=== PATIENT | male | born 1945 | race Caucasian/White ===

== ENCOUNTER 2024-10-20 08:32 | Emergency (ER) | payer OTHER, MEDICARE, MEDICAID ==
[~2024-10-20] VITALS: Ht 175.3 cm; Wt 72.9 kg
[2024-10-20] MEDS: TETanus/Pertussis (Acell)/Diphther VAC/PF (Tdap-Adult) 0.5ml syringe IMVAC ONE (10:19)
[2024-10-20] MEDS: LIDOcaine 1% W/epiNEPHrine 1:100,000 20ml vial SQ ONE (10:20)
--- NOTE | 2024-10-20 11:47 | Physician Documentation ---
History of Present Illness ~ Chief Complaint: Wound Stated Complaint: HAND WOUNDS Time Seen by MD: 09:03 Source: patient Mode of Arrival: POV Exam Limitations: no limitations HPI 79-year-old male was taking out his trash can to the road and tripped and fell down and has bilateral abrasions and lacerations to his knuckles and fingers. He also has 2 small abrasions to bilateral knees. He has full range motion of all extremities. He has not taken any blood thinners, no head strike, no neck pain, no loss of consciousness. Last tetanus unknown Tetanus within 5 years?: Yes Medication Reconciliation Allergies: Coded Allergies: No Known Allergies (Unverified , 10/20/24) Review of Systems All Other Systems at this time: Reviewed and Negative Physical Exam Vital Signs: RN Vital Signs have been reviewed: Yes, Temperature: 97.8, Source: Temporal, Heart Rate: 77, Respiratory Rate: 18, BP: 136/87, Pulse Oximetry: 98, Weight: 72.900 Oxygen Flow Rate: 0 Pulse Oximetry Reflects: adequate oxygenation Physical Exam General: Alert, no apparent distress. HEENT: PERRL, EOMI, no injection, moist mucous membranes. Neck: Full range of motion. Respiratory: Lungs clear, no respiratory distress. Chest: No accessory muscle use. Cardiovascular: Regular rate and rhythm, no murmurs. Gastrointestinal: Soft, nontender, nondistended. Bowels sounds present. Extremities: Normal range of motion, no deformity, full range motion of bilateral fingers. Neurologic: Oriented x4. Psychiatric: Normal mood and affect. Skin: Normal color, warm and dry. + laceration 2 right index and middle fingers, skin tears to the 2nd 3rd 4th and 5th fingers on the left hand and 4th and 5th finger on the right hand. Bilateral abrasions to his knees. Signs of infection, actively bleeding controlled with pressure. Procedures Procedures Obtained verbal consent from patient for lacerations repair Laceration/Wound Repair Laceration/Wound Repair #1: Location: Right index finger at the PIP joint Length (cm): 2 Anesthesia: Lidocaine w/ Epi Volume Anesthetic (mls): 1 Prep: irrigated by nurse, irrigated by physician Debrided: minimal Undermining: none Margins: revised Foreign Body: not identified Repaired: skin Wound Repaired With: sutures Suture Size/Type: 4-0, ethilon Layer Closure?: No Dressing Applied: non-adherent Splint Applied?: Yes Type of Splint Applied: Digit splint Sling Applied?: No Tolerated Procedure Well?: yes, no complications Laceration/Wound Repair #2: Location: Right middle finger at the PIP joint Length (cm): 2 Anesthesia: Lidocaine w/ Epi Volume Anesthetic (mls): 1 Prep: irrigated by nurse, irrigated by physician Debrided: minimal Undermining: none Margins: revised Foreign Body: not identified Repaired: skin Suture Size/Type: 4-0, ethilon Layer Closure?: No Dressing Applied: non-adherent Splint Applied?: Yes Type of Splint Applied: Digit splint Sling Applied?: No Tolerated Procedure Well?: yes, no complications Progress Results/Orders Reviewed/noted all lab results: Yes Results/Orders Orders - RADHA THOMAS Laceration/I&D Tray Set Up (10/20/24 ) Ortho Orders (10/20/24 ) Completed Orders - RADHA THOMAS Lidocaine 1% W/Epi 1:100,000 (Xylocaine (10/20/24 09:35) * Additional Wound Care Orders (10/20/24 09:32) Tetanus/Pertuss/Diph Acell/Pf (Boostrix (10/20/24 09:35) Acetaminophen 325mg Tablet (Tylenol Tabl (10/20/24 09:40) * Additional Wound Care Orders (10/20/24 11:42) Bacitracin Ointment (Bacitracin Ointment (10/20/24 11:50) Medications Received in ER Medications (Trade) Dose Ordered Sig/Lexii Route PRN Reason Start Time Stop Time Status Last Admin Dose Admin (Xylocaine 1%-EPI 1:100,000) 3 ml ONCE ONCE SQ 10/20/24 09:35 10/20/24 09:36 DC 10/20/24 10:20 3 ML (Boostrix vaccine syringe) 0.5 ml ONCE ONCE IMVAC 10/20/24 09:35 10/20/24 09:36 DC 10/20/24 10:19 0.5 ML (Tylenol tablet) 650 mg ONCE ONCE PO 10/20/24 09:40 10/20/24 09:41 DC 10/20/24 10:19 650 MG (bacitracin ointment) 1 applic ONCE ONCE TP 10/20/24 11:50 10/20/24 11:51 DC 10/20/24 11:57 1 APPLIC Vital Signs 10/20/24 10/20/24 10/20/24 08:39 11:19 12:01 Temp 97.8 97.8 97.8 Pulse 80 77 72 Resp 16 18 18 B/P (MAP) 114/67 136/87 (103) 137/98 Pulse Ox 98 98 99 O2 Flow Rate 0 0 Medical Decision Making Additional info obtained from: old records Findings 79-year-old male who tripped and fell while taking out his trash cans and has abrasions to bilateral knees and abrasions, skin tears and lacerations to his bilateral fingers. I placed sutures to his right index finger and right middle finger due to the depth of the laceration. The skin tears I was able to pull the skin over on a couple of them to help provide some protection to the underlying tissue. Last tetanus was unknown so we updated it today. He did not hit his head and does not use any blood thinners. I provided him with Tylenol for his discomfort. I filled out the form for hidden to be seen in the [facility] Care [facility] as he lives alone and has wounds to 8 of his fingers. The to the have sutures in place he has a finger splint to provide immobility but he will need assistance with dressing changes on both his hands. This form was filled out and faxed to our outpatient wound care center. Bacitracin was applied to al l abrasions, skin tears and lacerations prior to nonadherent bandaging. He has no other complaints, he has full range motion of his hand so no imaging was indicated. I offered admission for wound care but he is requesting to be discharged home. Differential Dx:Considerations: Include: Cellulitis Additional Comment Fracture, osteomyelitis, sprain, intracranial hemorrhage, spine injury, neurovascular injury of fingers. Departure Disposition: HOME / SELF CARE / HOMELESS Impression: Primary Impression: Laceration Additional Impression: Abrasion Condition: Stable Discharge Instructions: Abrasion, Laceration Care, Adult, [id number] Additional Instructions: You have 3 sutures to your right index finger and 2 sutures to your right middle finger which will need to be removed in 10-14 days. Due to the extensive wounds to both of your hands, I have put in a request for you to be seen by our wound care clinic so they can help you with dressing your wounds. Please keep the finger splint on until you have the sutures removed. You can use Tylenol for pain relief, and make sure to keep hand elevated to reduce the amount of swelling. Return back here for any new or worsening symptoms. Follow up with her primary care provider within the next week. Apply the bacitracin to your fingers with sutures as well as to any other skin tears that you have. Referrals: NO PRIMARY CARE PROVIDER (PCP) Education Educated: Patient Educated regarding: diagnosis, treatment, prognosis, need for follow up Additional Comment Medical Screen Exam This patient recieved a medical screening examination. After reviewing the individual's medical complaints with presenting symptoms and performing an appropriate physical examination, it was determined that no immediate life- threatening emergency medical condition is present. This individual is also not a women having contractions. Signature Scribe Signature: . Attestation: Scribed for Radha Thomas by Radha Gamboa NP . 10/20/24 15:08 Parts of this note were created using [employer] voice recognition software program. While efforts were made to correct any mistakes made by this voice recognition software program, nonsensical phrases may remain in this note. In addition, there may be errors and syntax, grammar, content and spelling. RADHA THOMASP Oct 20, 2024 11:47
[2024-10-20] MEDS: bacitracin 15gm ointment TP ONE (11:57)
== END 2024-10-20 12:23 | disposition home or self-care (01) ==
LOC: ER 08:32 → MERGE 08:32 → ER 12:23
DX: S61.210A Laceration without foreign body of right index finger without damage to nail, initial encounter (principal); S61.212A Laceration without foreign body of right middle finger without damage to nail, initial encounter; S80.211A Abrasion, right knee, initial encounter; S80.212A Abrasion, left knee, initial encounter; W01.0XXA Fall on same level from slipping, tripping and stumbling without subsequent striking against object, initial encounter; Y93.89 Activity, other specified; Y92.89 Other specified places as the place of occurrence of the external cause; Y99.8 Other external cause status
CPT/HCPCS: 12002; 90471; 90715; 99283; J3490; A6449

== ENCOUNTER 2024-10-29 11:04 | Inpatient (IN) | payer OTHER, MEDICARE, MEDICAID ==
[~2024-10-29] VITALS: Ht 182.9 cm; Wt 80.9 kg
[2024-10-29 11:41] LABS: MEAN PLATELET VOLUME 8.9 FL (7.4-10.4); RED CELL DISTRIBUTION WIDTH 16.8 % (11.5-14.5)
[2024-10-29 11:55] LABS: CREATININE 3.48 MG/DL (0.60-1.10); TOTAL CARBON DIOXIDE 22.7 MMOL/L (24-32); eCRCL 18 ML/MIN; eGFR 17 ML/MIN
[2024-10-29 12:18] LABS: BANDS% (MANUAL) 14.0 % (0-10); LYMPHOCYTES % (MANUAL) 1.0 % (21-51); METAMYLEOCYTES% (MANUAL) 3.0 % (0-0); MONOCYTES % (MANUAL) 7.0 % (2-12); NEUTROPHILS % (MANUAL) 75.0 % (42-75); PLATELET ESTIMATE NORMAL
--- NOTE | 2024-10-29 13:49 | Physician Documentation ---
History of Present Illness ~ Chief Complaint: Wound Re-Check Stated Complaint: WOUND CARE Time Seen by MD: 13:00 HPI Patient is seen today with complaints of worsening swelling and pain and redness of the wounds of his hands especially in the right hand. Patient denies any fevers or chills and has no other concern or complaint at this time. He denies any shortness of breath or chest pain or abdominal pain or nausea, vomiting, diarrhea. Patient states he fell while going out to take out the trash about nine days ago on the 20 of October and had sutures placed at that time in his hospital. Tetanus within 5 years?: Yes Medication Reconciliation Allergies: Coded Allergies: No Known Allergies (Unverified , 10/21/24) Miscellaneous Medications Unable to Obtain Medications (Unable to Obtain Medications), (Reported) Review of Systems Constitutional: Denies: chills, fever, weakness Eyes: Denies: pain, blurred vision ENT: Denies: ear pain, nose pain, throat pain, mouth pain Respiratory: Denies: cough, shortness of breath Cardiovascular: Denies: chest pain, palpitations Gastrointestinal: Denies: abdominal pain, nausea, vomiting Genitourinary: Denies: burning, dysuria Male Genitalia: Denies: penile discharge, testicular pain Neurological: Denies: headache, dizziness Musculoskeletal: Denies: pain, swelling Integumentary: Denies: rash, lesions Allergic/Immunologic: Denies: hives, itching Hematologic/Lymphatic: Denies: no symptoms reported Psychiatric: Denies: depression, anxiety Physical Exam Vital Signs: Temperature: 98.0, Source: Oral, Heart Rate: 83, Respiratory Rate: 14, BP: 119/66, Pulse Oximetry: 95, Weight: 80.910 Oxygen Flow Rate: 0 Physical Exam General: Awake and Alert, no acute distress. HEENT: Conjunctiva pink, Sclera clear, Mucus Membranes moist. Neck: Supple without masses and tenderness. Resp: Unlabored. Lungs clear to auscultation bilaterally. Heart: Regular Rate and rhythm, normal S1 and S2 without murmur, rub or gallop. Musculoskeletal: Patient has multiple dehisced wounds of the dorsum of the digits of the IP joints of the right hand with significant cellulitis and swelling and redness of the right hand mainly of the dorsum. Patient also has significant abrasions of the dorsum of the IP joint area of the digits of the left hand. Patient has erythema and induration and appearing cellulitis of the left anterior knee. Patient is neurovascularly intact distally. Extremities: No cyanosis,clubbing or edema. Skin: Warm and Dry. Progress Results/Orders Results/Orders Orders - THEO KHAN PAC [place] [facility]ist (10/29/24 13:39) Fill Out Med Reconciliation (10/29/24 13:39) Cult (Aer) Routine C&S+Gram St (10/29/24 13:39) Cult Anaerobic (10/29/24 13:39) Hand,Limited (Ap/Lat) (10/29/24 14:07) Hand,Limited (Ap/Lat) (10/29/24 14:07) Completed Orders - THEO KHAN PAC Normal Saline 1000ml (0.9% Sodium Chlori (10/29/24 13:41) Hand,Limited (Ap/Lat) (10/29/24 14:07) Hand,Limited (Ap/Lat) (10/29/24 14:07) Vital Signs 10/29/24 10/29/24 10/29/24 11:10 13:02 13:04 Temp 98.4 98.0 Pulse 92 83 Resp 18 14 B/P (MAP) 100/53 119/66 (83) Pulse Ox 97 95 O2 Flow Rate 0 0 Laboratory Tests Test 10/29/24 11:30 10/29/24 12:10 10/29/24 13:51 White Blood Count 17.8 H Red Blood Count 3.58 L Hemoglobin 9.5 L Hematocrit 29.5 L Mean Corpuscular Volume 82.3 Mean Corpuscular Hemoglobin 26.6 L Mean Corpuscular Hemoglobin Concent 32.4 L Red Cell Distribution Width 16.8 H Platelet Count 154 Mean Platelet Volume 8.9 Neutrophils (%) (Auto) 93.0 H Lymphocytes (%) (Auto) 1.3 L Monocytes (%) (Auto) 4.9 Eosinophils (%) (Auto) 0.7 Basophils (%) (Auto) 0.1 Neutrophils # (Auto) 16.5 H Lymphocytes # (Auto) 0.2 L Monocytes # (Auto) 0.9 Eosinophils # (Auto) 0.1 Basophils # (Auto) 0.0 CBC Comment Differential Total Cells Counted 100 Neutrophils % (Manual) 75.0 Band Neutrophils % 14.0 H Lymphocytes % (Manual) 1.0 L Monocytes % (Manual) 7.0 Metamyelocytes % 3.0 H Platelet Estimate Normal Red Blood Cell Morphology Perf Polychromasia 1+ Basophilic Stippling Anisocytosis 1+ [place] Cells 1+ Acanthocytes 1+ Schistocytes Few Sodium Level 140 Potassium Level 4.3 Chloride Level 102 Carbon Dioxide Level 22.7 L Anion Gap 15 Blood Urea Nitrogen 48 H Creatinine 3.48 H Estimated GFR/1.73 m2 17 BUN/Creatinine Ratio 13.8 Glucose Level 105 H Hemoglobin A1c 6.0 Calcium Level 8.8 Albumin 2.7 L Triglycerides Level 97 Cholesterol Level 57 LDL Cholesterol 16 L HDL Cholesterol 18 L Cholesterol/HDL Ratio 3.2 Procalcitonin 16.64 H Thyroid Stimulating Hormone (TSH) 4.34 Chemistry Comments Lactic Acid Level 3.5 H 3.8 H Microbiology Date/Time Source Procedure Growth Status 10/29/24 12:10 Blood Arm Left Blood Culture - Preliminary NEGATIVE (LESS THAN 24 HOURS) Resulted EKG/XRAY/CT/US/VASC/MRI Bone/Soft Tissue X-Ray (Ext.) : Additional Comment X-rays of bilateral hands interpreted by myself today shows no sign of acute fracture, bones in anatomic alignment, diffuse osteopenia. 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 DIAGNOSTIC RADIOLOGY Patient: JUSTINE DAVALOS Medical Record: [id number] [facility] 1945, Age: 79 Sex: Male Location: ER Patient Status: REG ER Service Date/Time: 10/29/241406 Ordering Physician: THEO KHAN PAC Exam: HAND,LIMITED (AP/LAT) CLINICAL INDICATION: BILAT HAND WOUNDS TECHNIQUE: Bilateral, 4 DI HAND,LIMITED (AP/LAT), DI HAND,LIMITED (AP/LAT) Comparison: None FINDINGS/IMPRESSION: : There is no evidence of acute fracture or dislocation. 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 Diffuse osteopenia. Electronically Signed by:DEREK GODFREY MD Date & Time: 10/29/241418 Dictated by: DEREK GODFREY MD Dictation date and time: 10/29/241418 Primary Care Provider: NO PRIMARY CARE PROVIDER cc: THEO KHAN PAC ~ Medical Decision Making Findings Patient is seen today with complaints of worsening swelling and pain and redness of the wounds of his hands especially in the right hand. Patient denies any fevers or chills and has no other concern or complaint at this time. He denies any shortness of breath or chest pain or abdominal pain or nausea, vomiting, diarrhea. Patient states he fell while going out to take out the trash about nine days ago on the 20 of October and had sutures placed at that time in his hospital. Patient did have anemia on CBC hemoglobin around 9.5 along with elevated white count. Hospitalist was consulted and patient will be admitted for IV antibiotics and further eval and treatment and possible surgical consult. Departure Disposition: ADMITTED INPATIENT Admitted to Inpatient Unit: to hospitalist Impression: Primary Impression: Cellulitis Qualified Codes: L03.119 - Cellulitis of unspecified part of limb Additional Impression: Wound Condition: Stable Additional Instructions: Patient did have anemia on CBC hemoglobin around 9.5 along with elevated white count. Hospitalist was consulted and patient will be admitted for IV antibiotics and further eval and treatment and possible surgical consult. Referrals: NO PRIMARY CARE PROVIDER (PCP) Signature Scribe Signature: No scribe Attestation: No scribe THEO KHAN Oct 29, 2024 13:49
[2024-10-29] MEDS: normal saline 1000ml 1,000 ML IV STA (14:00)
--- NOTE | 2024-10-29 14:22 | RADIOLOGY REPORT ---
CLINICAL INDICATION: BILAT HAND WOUNDS TECHNIQUE: Bilateral, 4 DI HAND,LIMITED (AP/LAT), DI HAND,LIMITED (AP/LAT) Comparison: None FINDINGS/IMPRESSION: : There is no evidence of acute fracture or dislocation. 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 Diffuse osteopenia.
[2024-10-29] MEDS ORDERED: magnesium Cl slow-release 64mg tablet PO PRN (14:45)
[2024-10-29] MEDS ORDERED: magnesium sulf-water 4G/100mL 100 ML IV PRN (14:45)
[2024-10-29] MEDS ORDERED: potassium Cl 20 mEq SR tablet PO PRN ×2 (14:45)
[2024-10-29] MEDS ORDERED: magnesium hydroxide 30ml (MOM) UD suspension PO PRN (14:45)
[2024-10-29] MEDS ORDERED: potassium Cl 40MEQ/1/2NS 520ml 520 ML IV PRN (14:45)
[2024-10-29] MEDS ORDERED: ondansetron/PF 4mg/2ml inj IV PRN (14:45)
[2024-10-29] MEDS ORDERED: magnesium sulf-water 2g/50mL 50 ML IV PRN (14:45)
[2024-10-29] MEDS ORDERED: mag hydrox/Alum hydrox/simeth 30ml oral suspension PO PRN (14:45)
[2024-10-29] MEDS: normal saline 1000ml 1,000 ML IV SCH ×2 (15:12→17:34)
--- NOTE | 2024-10-29 15:12 | HISTORY AND PHYSICAL-Residence ---
History & Physical Providers to CC Resident Creating Document: DOJAMSHIDRASROMAINE ~ History of Present Illness Reason for Admit\Complaint: Sepsis/Right hand wound History of Present Illness This is a 79 year-old male with PMH of HTN and HLD, presents in the ER with complaints of pain and swelling in the right hand, initially the symptoms began after a fall on Monday (10/20/2024) while he was carrying a trash can about 50 lb and sustained multiple abrasions and laceration to both knees and hands. Patient went to [facility] when he was referred to [facility]. At [facility], patient underwent dressing and went home with no antibiotics on board. As his symptoms and wound worsened he presented to the ED. He denies any head trauma or loss of consciousness, chest pain, palpitations, shortness of breaths, dizziness at the time of fall. Since yesterday, he reports worsening of swelling of his bilateral hands greater on the right hand, endorses dragging type of pain with a severity of 7/10 with no radiation, no aggravating or relieving factors. Patient denies fever or chills. Allergies: Coded Allergies: No Known Allergies (Unverified , 10/21/24) Past Medical History Past Medical History HTN HLD Past Surgical History Surgical History Comment Left Inguinal hernia repair Family History Family History: FH: diabetes mellitus (brother have type 2 diabetes) Past Social History Social History Comment Former smoker, quit smoking 20 years ago-smoked one pack of cigarettes for 40 years He quit alcohol 40 years ago prior to that, consume drink 6 beers Denies any other illicit drug use history. 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 ROS Constitutional: Reports: no symptoms reported Eyes: Reports: no symptoms reported ENT: Reports: no symptoms reported Respiratory: Reports: no symptoms reported Cardiovascular: Reports: no symptoms reported Gastrointestinal: Reports: no symptoms reported Genitourinary: Reports: no symptoms reported Male Genitalia: Reports: no symptoms reported Neurological: Reports: no symptoms reported Musculoskeletal: Reports: swelling Integumentary: Reports: no symptoms reported Allergic/Immunologic: Reports: no symptoms reported Hematologic/Lymphatic: Reports: no symptoms reported Endocrine: Reports: no symptoms reported Psychiatric: Reports: no symptoms reported Exam Vitals: Vital Signs Date Time Temp Pulse Resp B/P (MAP) Pulse Ox O2 Delivery O2 Flow Rate FiO2 10/29/24 13:04 10/29/24 13:02 98.0 83 14 95 0 General: General: awake, alert oriented to place, time, and person HEENT: No pallor present, no icterus, moist mucous membranes Neck: No masses and tenderness Resp: Unlabored. Lungs clear to auscultation bilaterally. Chest: Normal expansion. Cardiovascular: Regular Rate and rhythm, normal S1 and S2 without murmur, rub or gallop Abdomen: Soft and non tender in epigastrium, no organomegaly, no guarding and rigidity, bowel sounds present Neuro: No focal weakness in the upper and lower limb muscles, power of the muscles 5/5 bilateral upper and lower extremities, normal reflexes bilaterally. Cranial nerves intact Upper Extremities: No cyanosis,clubbing or edema,multiple lacerations,abrasions and weeping wound,swelling, erythema and edema noted in right hand greater than the left toe Lower Extremities: No cyanosis, clubbing or edema, multiple lacerations in both knees noted. Skin: Warm and Dry. No lesions Psych: Normal affect Diagnostic Data Last Recorded Lab Results: 10/29/24 1130 10/29/24 1130 Advance Care Planning Advanced Care plannin - 30 Minutes (I spent 17 minutes in discussing various resuscitative measures with the patient and he chose to be full code) Additional Plan Assessment: An 79-year-old male with PMH of HTN and HLD presented to the ED in view of worsening swelling and wound dehiscence of his bilateral hands, with right greater than the left. Patient is admitted for the evaluation management of wound dehiscence with possible sepsis and cellulitis. Plan Infected b/l hand wound with dehiscence Possible sepsis, POA Possible right hand cellulitis Leukocytosis with left shift Lactic acidosis Elevated WBC count, procalcitonin and lactic acid X-rays ruled out fractures Follow up with blood culture, CT and MRI of upper extremities, arterial ultrasound Follow up ESR, daily procalcitonin and repeat lactic acid Received 1 unit bolus of normal saline, continue IV fluids at 1:50 a.m. cc/hour Started patient on IV Vancomycin Wound care consulted ANCA versus ANCA on CKD Unknown baseline Elevated BUN and creatinine Continue IV fluids at 150 cc/hour Continue to Monitor CMP Follow up with urine lytes, FENa Normocytic anemia Probably dimorphic Hgb:9.5, Hct: 29.5 Follow up with iron panel and B12 HTN Pending med rec HLD Pending med rec Code Status: Full Code Diet: Regular DVT prophylaxis: SCD Disposition: Admit to PCU, follow up with repeat lactic acid levels, CT of upper extremities Notes and the case has been reviewed by me, agree with the assessment and plan as per above. Mary Beth Burr MD Internal Medicine, PGY 2 Date of Service: Oct 29, 2024 Billing Provider: LATOYA KEATING MD, SANJAY, RES Oct 29, 2024 15:12 MARY BETH BURR, RES Oct 29, 2024 18:24
[2024-10-29] MEDS ORDERED: ampicill/sulbac 1.5gm/NS 100ml 100 ML IV SCH (15:20)
[2024-10-29 15:40] LABS: CHOL/HDL RATIO 3.2 (0.00-4.99); LDL CHOLESTEROL 16 MG/DL (50-100)
[2024-10-29 16:00] VITALS: BP 108/60; PULSE 95; RESP 16; TEMP 97.9; O2SAT 99
[2024-10-29] MEDS ORDERED: vancomycin/NS 1 GM ADD-VANTAGE 250 ML IV PRN (16:35)
[2024-10-29] MEDS: PERFLUTREN PROTEIN-A MICROSPHR (Optison) 0.22 MG/ML 3ML VIAL IV ONE (16:45)
[2024-10-29] MEDS: VANCOMYCIN 1.75GM/WATER FOR INJ (PEG) 350 ML IVPB IV ONE (17:34)
[2024-10-29 17:44] VITALS: RESP 16; O2SAT 99
[2024-10-29 18:00] VITALS: BP 108/60; PULSE 95; RESP 16; TEMP 97.9; O2SAT 99
--- NOTE | 2024-10-29 18:54 | CARDIOLOGY REPORT ---
APPROVED REPORT EXAM: Comprehensive 2D, Doppler, and color-flow Echocardiogram. Patient Location: [address] Heart Rate: 90's bpm Rhythm: SINUS Indications SHORTNESS OF BREATH Instrumentation Supervisor: NONE Previous echo: NONE 2D Dimensions IVSd 1.0 (0.7-1.1cm) LVDd 5.0 cm PWd 1.0 (0.7-1.1cm) IVSs 1.2 (0.8-1.2cm) LVDs 3.7 (2.5-4.0cm) PWs 1.2 (0.8-1.2cm) LVOT Diameter 2.11 (1.8-2.4cm) FS (%) 26.3 % SV 59.8 ml CO 5.4 L/min M-Mode Dimensions Aortic Root 3.38 (2.2-3.7cm) Aortic Cusp Exc 1.81 (1.5-2.0cm) Aortic Valve AoV Peak Geronimo. 135.3 cm/s AoV VTI 22.5 cm AO Peak GR. 7.3 mmHg AO Mean GR. 4 mmHg LVOT VTI 20.40 cm LVOT Peak Geronimo. 102.3 cm/s MARIELA(VTI)/BSA 3.19 cm2/m2 MARIELA (VTI) 3.19 cm2 Mitral Valve MV E Velocity 69.8 cm/s MV Peak Gr. 4 mmHg MV DECEL TIME 152 ms MV A Velocity 81.5 cm/s MV PHT 60 ms E/A Ratio 0.9 MVA (PHT) 3.67 cm2 MV VMax99.7 cm/s LEFT VENTRICLE Normal LV size and wall thickness. Overall systolic function is normal. LVEF is 60%. RIGHT VENTRICLE RV appears normal size and function. TDS ATRIA The left atrium size appears normal. AORTIC VALVE Probable trileaflet AV appears mildly sclerotic without stenosis. No insufficiency. TDS MITRAL VALVE Mild MV annular calcification without stenosis. Trace regurgitation. TDS TRICUSPID VALVE TV appears structurally normal with trace regurgitation. TDS PULMONIC VALVE Pulmonic valve is not well visualized. TDS GREAT VESSELS The aortic root is normal in size. IVC is not well visualized. PERICARDIUM Normal pericardium. Anterior epicardial fat pad versus small effusion without hemodynamic compromise. Other Information Study Quality: Technically Difficult due to poor imaging windows Conclusion Technically difficult study. Normal LV size and wall thickness. Overall systolic function is normal. LVEF is 60%. RV appears normal size and function. The left atrium size appears normal. Probable trileaflet AV appears mildly sclerotic without stenosis. No insufficiency. Mild MV annular calcification without stenosis. Trace regurgitation. TV appears structurally normal with trace regurgitation. Normal pericardium. Anterior epicardial fat pad versus small effusion without hemodynamic compromise.
--- NOTE | 2024-10-29 18:58 | VASCULAR REPORT ---
RIGHT UPPER EXTREMITY ARTERIAL DUPLEX ULTRASOUND STUDY: REASON FOR EXAM: Right upper extremity pain. Fall. Trauma. TECHNIQUE: The full lengths of the arterial segments were evaluated with color-flow Doppler ultrasoun d. Suspected abnormalities were evaluated with vitale scale ultrasound. [employer] spectral Doppler waveforms, with velocity measurements were obtained. Spectral waveforms with velocity measurements w ere obtained 2 to 4 cm central to any areas of significant stenosis. Subclavian, axillary, brachial, radial, and ulnar arteries were evaluated. FINDINGS: There is mild atherosclerotic plaque in the arteries of the right upper extremity. The subclavian art grady waveform is multiphasic. The axillary and brachial arteries are patent with multiphasic waveforms . The radial and ulnar arteries are patent with multiphasic waveforms. Multiphasic flow is noted in t he palmar arch. IMPRESSION: No hemodynamically significant stenosis. No evidence of arterial injury.
[2024-10-29] MEDS: K and/or MAG REPLACEMENT MC SCH (20:00)
--- NOTE | 2024-10-29 20:29 | RADIOLOGY REPORT ---
EXAM: CT CT HEAD INDICATION: SLURRED SPEECH, RULE OUT CVA TECHNIQUE: CT images of the head were obtained without administration of IV contrast. CT scans at [facility] use dose modulation, iterative reconstruction, and/or weight based dosing when appropriate to reduce radiation dose to as low as reasonably achievable. COMPARISON: None available at the time of dictation. FINDINGS: PARENCHYMA: No acute hemorrhage. There is no mass effect, midline shift, or herniation. There is pres ervation of the vitale white differentiation. Mild scattered hypoattenuation along the periventricular, centrum semiovale, and deep white matter tracts, which are nonspecific however statistically most li sofya represent chronic microvascular ischemic change. VENTRICLES: No hydrocephalus. EXTRA-AXIAL SPACES: No extra-axial fluid collections. OTHER: The bony structures are intact. Visualized portions of the paranasal sinuses and mastoid air cells are clear. IMPRESSION: 1. No CT evidence of an acute intracranial abnormality.
[2024-10-29] MEDS ORDERED: UNABLE TO OBTAIN (21:19)
--- NOTE | 2024-10-29 21:29 | RADIOLOGY REPORT ---
EXAM: MR MRI UPPER EXTREMITY RIGHT INDICATION: swollen right hand TECHNIQUE: Multiplanar, multisequence imaging of the right hand without contrast COMPARISON: None FINDINGS: BONES: No MR evidence of an acute fracture, osseous contusion, or aggressive focal osseous lesion. no MR evidence of osteomyelitis allowing for limitation of the distal digits with incomplete fat suppre ssion. MUSCLES: Minimal reactive myositis along the thenar compartment TENDONS: Intact. LIGAMENTS: Intact. JOINT SPACES: No joint effusion. degenerative change of the 1st carpometacarpal joint with a opposing subchondral cystic change and severe joint space loss. NEUROVASCULAR: Normal. OTHER: Prominent dorsal subcutaneous adipose tissue swelling primarily overlying the extensor tendon sheaths with large broad area of possible fluid collection measuring up to 6.8 cm in width. Insinuati on along the dorsal subcutaneous adipose tissues of primarily the 2nd and 3rd digits. IMPRESSION: 1. No MR evidence of osteomyelitis. 2. Extensive primarily dorsal subcutaneous adipose tissue edema with possible fluid collection (infec miley versus sterile) in the appropriate clinical setting. 3. No definitive evidence of significant tenosynovitis.
[2024-10-29] MEDS: docusate sod 100mg capsule PO SCH (21:39)
--- NOTE | 2024-10-29 21:39 | RADIOLOGY REPORT ---
EXAM: CT CT UPPER EXTREMITIES INDICATION: Wound and swollen hands TECHNIQUE: Axial images of bilateral upper extremities have been obtained along with coronal and sagi ttal reformatted images. All CT scans at this facility use dose modulation, iterative reconstruction, and/or weight based dosing when appropriate to reduce radiation dose to as low as reasonably achieva ble. COMPARISON: None FINDINGS: BONES: No CT evidence of an acute fracture or aggressive osseous lesion. MUSCLES: No abnormal attenuation. JOINT SPACES: No joint effusion. TENDONS/LIGAMENTS: Intact. OTHER: Extensive asymmetric right upper extremity subcutaneous tissue edema. No evidence of soft tiss ue emphysema. No definitive intramuscular fluid collection to a lesser degree, mild subcutaneous adip ose tissue soft tissue swelling of the ulnar aspect of the left forearm. Incomplete characterization of possible hypoattenuating lesions in the liver, incompletely characterized. Consider nonemergent d edicated CT abdomen pelvis with contrast. Partial herniation of the of the anterior aspect of the venessa dder into the left inguinal canal with the associated fat IMPRESSION: 1. Primarily dorsal to dorsal ulnar forearm hand soft tissue swelling without definitive drainable fl uid collection based on CT assessment. 2. No CT evidence of necrotizing fasciitis. No soft tissue emphysema. No drainable fluid collection/ abscess. 3. Partial herniation of the of the anterior aspect of the bladder into the left inguinal canal with the associated fat
[2024-10-29 22:00] VITALS: BP 90/53; PULSE 97; RESP 13; TEMP 97.1; O2SAT 91
[2024-10-29] MEDS: CefTRIAXone/D5W-Rocephin 1gm 50 ML IV SCH (22:20)
[2024-10-30] VITALS (8 sets, daily range): BP systolic 100–125; BP diastolic 40–52; PULSE 95–105; RESP 17–32; TEMP 97.1–98; O2SAT 90–98
[2024-10-30] MEDS: VANCOMYCIN LEVEL IV ONE (03:00)
[2024-10-30 03:42] LABS: MEAN PLATELET VOLUME 9.2 FL (7.4-10.4); RED CELL DISTRIBUTION WIDTH 16.7 % (11.5-14.5)
[2024-10-30 03:55] LABS: APTT 41 SECONDS (22-32); INR 1.5 INR
[2024-10-30 04:11] LABS: BANDS% (MANUAL) 25 % (0-10); METAMYLEOCYTES% (MANUAL) 2 % (0-0); MONOCYTES % (MANUAL) 3 % (2-12); NEUTROPHILS % (MANUAL) 70 % (42-75); PLATELET ESTIMATE DECREASED
[2024-10-30 05:02] LABS: CREATININE 4.06 MG/DL (0.60-1.10); PHOSPHORUS 6.2 MG/DL (2.3-4.5); TOTAL CARBON DIOXIDE 22.5 MMOL/L (24-32); eCRCL 16 ML/MIN; eGFR 14 ML/MIN
[2024-10-30] MEDS: normal saline 500ml IV soln 500 ML IV ONE (10:22)
[2024-10-30] MEDS ORDERED: normal saline 500ml IV soln 500 ML IV SCH (10:35)
--- NOTE | 2024-10-30 12:18 | RADIOLOGY REPORT ---
CHEST RADIOGRAPH Indication: sepsis Technique: Single frontal view of the chest was obtained Comparison: None FINDINGS: Lines and Tubes: None Lungs: No focal consolidation. Pleura: No effusion. No pneumothorax. Cardiomediastinal contours: Unremarkable Bones: No acute osseous abnormality. IMPRESSION: No acute cardiopulmonary disease.
[2024-10-30] MEDS: normal saline 1000ml 1,000 ML IV ONE ×2 (12:36→13:43)
[2024-10-30] MEDS: piperacillin/tazo 3.375gm/50ml 50 ML IV SCH (13:43)
[2024-10-30] MEDS: clindamycin 300mg/D5W 50mL 50 ML IV SCH (13:43)
[2024-10-30] MEDS: LidoCAINE 2% Topical Jelly 11mL syringe (UROJET) TOP ONE (13:45)
[2024-10-30 14:53] LABS: LEUKOCYTE ESTERASE ,URINE NEGATIVE (Neg); NITRITES, URINE NEGATIVE (Neg); OCCULT BLOOD,URINE SMALL (Neg)
[2024-10-30 15:01] LABS: UA COLLECTION TYPE NON-SPECIFIED
[2024-10-30 15:03] LABS: URINE AMPHETAMINE SCREEN NEGATIVE (Neg); URINE BARBITUATE SCREEN NEGATIVE (Neg); URINE BENZODIAZEPINES SCREEN NEGATIVE (Neg); URINE CANNABINOID SCREEN NEGATIVE (Neg); URINE COCAINE SCREEN NEGATIVE (Neg); URINE METHADONE SCREEN NEGATIVE (Neg); URINE OPIATE SCREEN POSITIVE (Neg); URINE PHENCYCLIDINE SCREEN NEGATIVE (Neg)
[2024-10-30 15:04] LABS: AMORPHOUS URATES 2+
[2024-10-30 15:06] LABS: HYALINE CASTS 0-3 /LPF (NEGATIVE); SQUAMOUS EPITHELIAL CELL,UR FEW /LPF (FEW)
[2024-10-30 15:09] LABS: CREATININE,URINE RANDOM 148.0 MG/DL; GLUCOSE,URINE RANDOM 41.0 MG/DL; TOTAL PROTEIN,URINE RANDOM 159.4 MG/DL; UA UREA RANDOM 257.0 MG/DL
--- NOTE | 2024-10-30 16:43 | RADIOLOGY REPORT ---
EXAM: US ULTRASOUND KIDNEY NON VASC INDICATION: sepsis possible atn TECHNIQUE: Multiple real-time sonographic images of the kidneys and bladder were obtained. COMPARISON: None Findings: Right kidney measures 10.9 x 5.1 x 4.1 cm with normal contours, echotexture, and cortical thickness. No evidence of hydronephrosis, calculi, cystic or solid lesions. Left kidney measures 11.0 x 5.0 x 5.5 cm with normal contours, echotexture, and cortical thickness. M ultiple anechoic lesions measuring up to 2.8 cm. No evidence of hydronephrosis, calculi, or solid le sions. Urinary bladder is unremarkable without evidence of abnormal wall thickening, mass, or calculi. Prevo id volume 135.5 mL. Postvoid volume was not obtained. Impression: 1. Unremarkable sonographic study of the right kidney and urinary bladder. 2. Left renal cysts.
[2024-10-30 17:25] LABS: CREATININE 4.18 MG/DL (0.60-1.10); PHOSPHORUS 5.6 MG/DL (2.3-4.5); TOTAL CARBON DIOXIDE 18.8 MMOL/L (24-32); eCRCL 15 ML/MIN; eGFR 14 ML/MIN
--- NOTE | 2024-10-30 17:38 | PROGRESS NOTE- Residence ---
Progress Note - Resident Providers to CC Resident Creating Document: SPENCER EAGLE RES ~ Antibiotic Timeout Antibiotic Ordered?: Yes Subjective Patient is seen and examined at bedside.Patient denies any shortness of breath or pain.He had a nightmare yestraday night and was scared,yestraday he had 2 bowel movements and he reports he is passing urine little bit. Objective Vital Signs Date Time Temp Pulse Resp B/P (MAP) Pulse Ox O2 Delivery O2 Flow Rate FiO2 10/30/24 15:00 98.0 95 32 112/41 (64) 94 Room Air 10/29/24 15:52 0 Result Diagram: 10/30/24 0310 10/30/24 1636 General: Drowsy but arousable and responds to commands not in any acute distress. HEENT: No pallor present, no icterus, dry mucous membranes Neck: No masses and tenderness Resp: Unlabored. Lungs clear to auscultation bilaterally. Chest: Normal expansion. Cardiovascular: Regular Rate and rhythm, normal S1 and S2 without murmur, rub or gallop Abdomen: Soft and non tender in epigastrium, no organomegaly, no guarding and rigidity, bowel sounds present Neuro: No focal weakness in the upper and lower limb muscles, power of the muscles 5/5 bilateral upper and lower extremities, normal reflexes bilaterally. Cranial nerves intact Upper Extremities: No cyanosis,clubbing or edema,multiple lacerations,abrasions and weeping wound,swelling, erythema and edema noted in right hand greater than the left toe Lower Extremities: Left lower extremity edema 2+. multiple lacerations in both knees noted. Skin: Warm and Dry. Psych: Normal affect Coagulation Studies Laboratory Tests Test 10/30/24 03:10 Prothrombin Time 14.6 SECONDS (9.0-12.0) H INR International Normalized Ratio 1.5 INR Activated Partial Thromboplast Time 41 SECONDS (22-32) H Coagulation Comments Advance Care Planning Advanced Care planning: Add on additional 30 min Plan Plan This is a 79 year-old male with PMH of HTN and HLD, presents in the ER with complaints of pain and swelling in the right hand, initially the symptoms began after a fall on Monday (10/20/2024) while he was carrying a trash can about 50 lb and sustained multiple abrasions and laceration to both knees and hands. Plan Infected b/l hand wound with dehiscence Severe sepsis, likely secondary to cellulitis of the upper extremity Right hand cellulitis Leukocytosis with left shift Lactic acidosis Wbc count dropped from 17.8 to 8.2, procalcitonin trending upward currently its 26.64. Lactic acid variable trending up and down currently 3.0 Patient recevied 4 L of NS X-rays ruled out fractures Upper Extremity CT upper extremities: 1. Primarily dorsal to dorsal ulnar forearm hand soft tissue swelling without definitive drainable fluid collection based on CT assessment. No CT evidence of necrotizing fasciitis. No soft tissue emphysema. No drainable fluid collection/ abscess. MRI Upper extremities:1. No MR evidence of osteomyelitis. Extensive primarily dorsal subcutaneous adipose tissue edema with possible fluid collection (infected versus sterile) in the appropriate clinical setting. No definitive evidence of significant tenosynovitis. Patient currently on vancomycin, rocephin and clindamycin ,Dced zoysn as per reccomendation of leather cleaner. Patient recevied 4 L of NS. Patient wounds has been dressed Follow up with serial lactic acid levels and procalcitonin. ID has been Consulted, awaiting recommendations. Acute Kidney Injury likely ATN due to Sepsis Unknown baseline Creatinine trending upward 4.18 Continue to Monitor CMP Urine Na: 22, Urine K 68, Urine Creatinine: 148, Urine Urea: 257 FeNA: 0.4% Decrease urine output since yestraday, placed patient on foleys catheter, only 50 ml noted so far. Maintain Strict I&O chart. Senior Loan Officer consulted, advised CPK in view of rhabdomylsis,advised to repeat CMP,mg,po4 stat. Normocytic anemia Probably dimorphic Hgb:8.1, Hct: 24.5 Follow up with iron panel and B12 History of HTN Currently hypotensive History of HLD Pending med rec Dvt Prophylaxis: SCD Code Status: Full Code. Critical Care time 30-40 minutes Spencer Eagle PGY1- Resident. Addendum: Patient is in severe sepsis with up trending procalcitonin and lactic acid. He has been aggressively fluid resuscitated. He is developing fine crackles. Repeat chest x-ray ordered which is clear. Continue fluid resuscitation, Fluids switched to bicarb per Nephrology. He is currently on vancomycin and clindamycin. Follow up with repeat procalcitonin and lactic acid. ID consulted, appreciate recommendations. Vascular ultrasound confirmed a DVT and hence started him on the heparin drip per DVT protocol. Internal got a call back from vascular ultrasound stating that it is not a DVT and it is a superficial thrombus in the great saphenous vein, can DC the heparin drip protocol continue with subQ heparin DVT prophylaxis. Critical care time 35-40 minutes. Marcia Hester MD Resident Date of Service: Oct 30, 2024 Billing Provider: LATOYA KEATING MD, SANJAY, RES Oct 30, 2024 17:38 MARCIA HESTER, RES Oct 30, 2024 19:17
--- NOTE | 2024-10-30 18:03 | CONSULTATION REPORT ---
Consult Providers to CC ~ History of Present Illness Primary Medical Doctor: Spencer Eagle MD Reason for Admit\Complaint: ANCA History of Present Illness This is a 79 year-old male with PMH of HTN and HLD, presents in the ER with complaints of pain and swelling in the right hand, initially the symptoms began after a fall on Monday (10/20/2024) while he was carrying a trash can about 50 lb and sustained multiple abrasions and laceration to both knees and hands. Patient went to [facility] when he was referred to [facility]. At [facility], patient underwent dressing and went home with no antibiotics on board. As his symptoms and wound worsened he presented to the ED. He denies any head trauma or loss of consciousness, chest pain, palpitations, shortness of breaths, dizziness at the time of fall. Since yesterday, he reports worsening of swelling of his bilateral hands greater on the right hand, endorses dragging type of pain with a severity of 7/10 with no radiation, no aggravating or relieving factors. Patient denies fever or chills. Allergies: Coded Allergies: No Known Allergies (Unverified , 10/21/24) Home Medications Home Medications Active Reported Unable to Obtain Medications (Non-Formulary Medication) Each Past Medical History Past Medical History HTN HLD Past Surgical History Surgical History Comment Left Inguinal hernia repair Family History Family History: FH: diabetes mellitus (brother have type 2 diabetes) Past Social History Social History Comment Former smoker, quit smoking 20 years ago-smoked one pack of cigarettes for 40 years He quit alcohol 40 years ago prior to that, consume drink 6 beers Denies any other illicit drug use history. 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 trumatic injury with pain in upper and lower extremitites. no known history of kidney disease. denies shortness of breath or chest pain. Exam Vitals: Vital Signs Date Time Temp Pulse Resp B/P (MAP) Pulse Ox O2 Delivery O2 Flow Rate FiO2 10/30/24 15:00 98.0 95 32 112/41 (64) 94 Room Air 10/29/24 15:52 0 General: Vital Signs: As above General: Normal body habitus, no acute distress. Skin: No rashes, lumps, ulcers, blisters, purpura or petechiae HEENT: Anicteric sclera, MAME Neck: Supple and nontender without enlargement of the thyroid, or lymphadenopathy. Chest: Normal size and shape, no tenderness, CTA bilaterally Heart: Regular. No jugular venous distention, S1 and S2 heard , no gallop Abdomen: Soft and non tender no organomegaly,BS+ Extremities: multiple areas of erythema and edema in upper and left lower extremity and abrasions. right hand has been dressed. Neuro: Nonfocal. Diagnostic Data Last Recorded Lab Results: 10/30/24 0310 10/30/24 1636 Diagnostic Data: Laboratory Tests Test 10/30/24 03:10 Prothrombin Time 14.6 SECONDS (9.0-12.0) H INR International Normalized Ratio 1.5 INR Activated Partial Thromboplast Time 41 SECONDS (22-32) H Coagulation Comments Problems: (1) ANCA (acute kidney injury) Assessment & Plan: CPK is normal. no clinical signs of compartment syndrome. creatinine was 3.4 on arrival, and despite hydration, it is up to 4 now. He still complains of thirst and his CXR is clear without any fluid overload pattern. will continue with hydration. change the fluids to bicarb to avoid further worsening of hyperchloremic acidosis from NS. there is a chance he is in ATn though the Urinalysis does not show that yet. will do the proteinuria work up. on multiple antibiotics. Id Has been consulted. kindly avoid combining vancomycin with zosyn to minimize renal insult. switch to renal diet. If the creatinine continues to worsen further tomorrow, he is heading towards renal replacement therapy. I am not sure if he has previous kidney disease as we don't have any records from before in this hospital.. (2) Anemia Assessment & Plan: assess for iron deficiency. even if iron deficient, i would hesitate to give any iron right now, in michael setting of cellulitis and sepsis. xfuse prn will give epogen. rule out any paraproteins. CADENCE COTO MD Oct 30, 2024 18:03
[2024-10-30] MEDS ORDERED: HEPARIN DRIP DVT/PE -**PHARMACIST TO DOSE IV ONE (18:10)
--- NOTE | 2024-10-30 18:43 | RADIOLOGY REPORT ---
EXAM: DI CHEST,SINGLE VIEW TECHNIQUE: Single frontal chest radiograph CLINICAL HISTORY: fluid overload concern COMPARISON: DI CHEST,SINGLE VIEW on DOS: 10/30/24 Findings/Impression: Frontal chest radiograph demonstrates no acute osseous or superficial soft tissue abnormalities. The trachea is midline. The cardiac silhouette and mediastinum are within normal limits. Bibasilar atelectasis. No pneumothorax, pleural effusions, or consolidations.
--- NOTE | 2024-10-30 18:46 | VASCULAR REPORT ---
EXAM: VASC VL VENOUS Clinical History: Left lower extremity edema status post fall Comparison: None Technique: Duplex Doppler evaluation of the deep venous systems of the left lower extremity from the common femo ral veins to the popliteal veins including color Doppler and spectral/pulsed waveform analysis was pe rformed. Findings: Incompressibility and lack of doppler flow in the left greater saphenous vein. No evidence of incompressibility or abnormal color or spectral Doppler flow visualized in the remaini ng deep left lower extremity veins. Proximal greater saphenous vein is grossly unremarkable. Left inguinal lymph node measuring 2.4 cm, favored reactive. Impression: 1. Occlusive DVT in the left greater saphenous vein. Critical Result: DVT Findings discussed with Dr. Eagle at 10/30/2024 06:44 PM, and acknowledged receipt and understanding of the findings.
[2024-10-30 20:24] LABS: APTT 27 SECONDS (22-32)
[2024-10-30 20:31] LABS: % IRON SATURATION 3 % (11-46)
[2024-10-30] MEDS: sodium bicarbonate 1meq/ml inj 150 ML in dextrose 5%-water 1,000 ML IV SCH (20:48)
[2024-10-30 20:50] LABS: INR 1.4 INR
[2024-10-30] MEDS: heparin, porcine 5000 units/ml vial SQ SCH (20:58)
[2024-10-31] VITALS (30 sets, daily range): BP systolic 38–143; BP diastolic 23–51; PULSE 0–99; RESP 18–34; TEMP 93–98.3; O2SAT 34–100
[2024-10-31] MEDS: VANCOMYCIN LEVEL IV SCH (03:00)
[2024-10-31 04:33] LABS: ABG BASE EXCESS -10.2 mmol/L (-2.0-3.0); ABG HCO3 15.8 mmol/L (21.0-28.0); ABG OXYGEN SATURATION 86.9 % (94.0-98.0); ABG PCO2 (T) 34.9 mmHg (35.0-48.0); ABG PH (T) 7.272 (7.350-7.450); ABG PO2 (T) 60.7 mmHg (83.0-108.0); ALLEN'S TEST Modified; FCOHb 0.1 % (0.5-1.5); FHHb 13.0 % (0.0-5.0); FIO2 36.0 mmHg/%; FLOW 4 L/min; FMetHb 0.3 % (0.0-1.5); FO2Hb 86.6 % (94.0-98.0); MODE NASAL CANNULA; PATIENT TEMPERATURE 36.8; TOTAL HEMOGLOBIN 10.2 G/dl (13.5-17.5)
--- NOTE | 2024-10-31 04:58 | RADIOLOGY REPORT ---
CHEST RADIOGRAPH Indication: desatting Technique: 1 view Comparison: DI CHEST,SINGLE VIEW on DOS: 10/30/24, DI CHEST,SINGLE VIEW on DOS: 10/30/24 FINDINGS: Lines and Tubes: None Lungs/Pleura: Unchanged. Cardiomediastinum: Unchanged. Other: Unchanged osseous structures. IMPRESSION: 1. No significant change from the previous study. Mild bilateral infrahilar interstitial opacities w ithout focal consolidation.
[2024-10-31 07:33] LABS: APTT 36 SECONDS (22-32); INR 1.4 INR
[2024-10-31 07:37] LABS: MEAN PLATELET VOLUME 9.4 FL (7.4-10.4); RED CELL DISTRIBUTION WIDTH 17.7 % (11.5-14.5)
[2024-10-31] MEDS ORDERED: atropine 0.1mg/ml 10ml syringe ONE (08:00)
[2024-10-31] MEDS ORDERED: heparin, porcine 5000 units/ml vial SQ SCH (08:30)
[2024-10-31 08:39] LABS: CREATININE 5.26 MG/DL (0.60-1.10); LACTATE DEHYDROGENASE 281 U/L (85-227); PHOSPHORUS 6.4 MG/DL (2.3-4.5); TOTAL CARBON DIOXIDE 16.0 MMOL/L (24-32); eCRCL 12 ML/MIN; eGFR 11 ML/MIN
[2024-10-31] MEDS: NORepinephrine 8mg/ 250ml NS 250 ML IV ONE ×3 (08:46→19:36)
[2024-10-31] MEDS: albumin (human) 25% 100 ML IV solution IV ONE (09:00)
[2024-10-31] MEDS: albumin (human) 25% 100ml IV 400 ML IV ONE (09:05)
[2024-10-31] MEDS: normal saline 1000ml 1,000 ML IV ONE (09:06)
[2024-10-31 09:15] LABS: BANDS% (MANUAL) 13.0 % (0-10); LYMPHOCYTES % (MANUAL) 2.0 % (21-51); METAMYLEOCYTES% (MANUAL) 2.0 % (0-0); MONOCYTES % (MANUAL) 2.0 % (2-12); NEUTROPHILS % (MANUAL) 81.0 % (42-75); NUCLEATED RED BLOOD CELLS 1 /100WBC (0-0); PLATELET ESTIMATE DECREASED
[2024-10-31] MEDS: albumin (Human) 5% 250ml 250 ML IV SCH (09:37)
[2024-10-31] MEDS ORDERED: ATOR10TA70 PO (09:49)
[2024-10-31] MEDS ORDERED: CHOL20003 PO (09:49)
[2024-10-31] MEDS ORDERED: PANT-47 PO (09:49)
[2024-10-31] MEDS ORDERED: POTA20TA34 PO (09:49)
[2024-10-31] MEDS ORDERED: AMLO10TA13 PO (09:49)
[2024-10-31] MEDS ORDERED: HYDR12.55 PO (09:49)
--- NOTE | 2024-10-31 10:14 | RADIOLOGY REPORT ---
CHEST RADIOGRAPH Indication: intubated cl line placement n/g Technique: Single frontal view of the chest was obtained Comparison: DI CHEST,SINGLE VIEW on DOS: 10/31/24, DI CHEST,SINGLE VIEW on DOS: 10/30/24, DI CHEST,SING LE VIEW on DOS: 10/30/24 FINDINGS: Lines and Tubes: Right central venous catheter tip in the SVC. Endotracheal tube 4.7 cm from the shukri na. Nasogastric tube tip in the stomach. Lungs: No focal consolidation. Pleura: No effusion. No pneumothorax. Cardiomediastinal contours: Unremarkable Bones: No acute osseous abnormality. IMPRESSION: Worsening pulmonary edema.
[2024-10-31 10:20] LABS: ABG BASE EXCESS -20.1 mmol/L (-2.0-3.0); ABG HCO3 11.1 mmol/L (21.0-28.0); ABG OXYGEN SATURATION 100.0 % (94.0-98.0); ABG PCO2 (T) 53.9 mmHg (35.0-48.0); ABG PH (T) 6.925 (7.350-7.450); ABG PO2 (T) 338.1 mmHg (83.0-108.0); ALLEN'S TEST POSITIVE; FCOHb 1.5 % (0.5-1.5); FHHb 0.0 % (0.0-5.0); FIO2 100.0 mmHg/%; FMetHb 0.2 % (0.0-1.5); FO2Hb 98.3 % (94.0-98.0); MODE VENT - APRV; PATIENT TEMPERATURE 36.0; PEEP 5 cm H2O; RESPIRATORY RATE 18 b/min; TIDAL VOLUME 500 mL; TOTAL HEMOGLOBIN 7.0 G/dl (13.5-17.5)
[2024-10-31] MEDS ORDERED: magnesium sulf-water 4G/100mL 100 ML IV PRN (11:20)
[2024-10-31] MEDS ORDERED: potassium Cl 40MEQ/270ML bag 270 ML IV PRN (11:20)
[2024-10-31] MEDS ORDERED: calcium chloride inj. 1,000 MG in normal saline 100ml IV soln 100 ML IV PRN (11:20)
[2024-10-31] MEDS ORDERED: sodium phosphate inj. 30 MMOL in dextrose 5%-water 250 ML IV PRN (11:20)
--- NOTE | 2024-10-31 11:26 | PROGRESS NOTE ---
Progress Note Dictate Providers to CC ~ Central Line/PICC still needed: Yes Central Line/PICC Necessity: Req HD/Plasmapheresis [place]or Indications Met/Not Met: F/C Indications Met Antibiotic Ordered?: Yes Subjective Subjective Ther patient is taking the turn for worse. He is now in CICu. His lactate is up to 8+. He is septic with cellulitis. He is in ATN. His creatinine is up to 5.2. His bicarb is 16. He is oging to need renal replacement therapy with CVVH. line is being plaed. Objective Vitals Vital Signs Date Time Temp Pulse Resp B/P (MAP) Pulse Ox O2 Delivery O2 Flow Rate FiO2 10/31/24 11:05 100 10/31/24 10:29 95 24 100 10/31/24 07:00 97.5 89/34 (52) High Flow Nasal Cannula 8.0 Lab Results: 10/31/24 0702 10/31/24 0702 Objective altered mental status CVS: S1S2+ RS: CTAAbd: BS+ Ext: multiple abrasions, erythema, edema, in all lmibs. Coagulation Studies Laboratory Tests Test 10/31/24 07:02 Prothrombin Time 13.7 SECONDS (9.0-12.0) H INR International Normalized Ratio 1.4 INR Activated Partial Thromboplast Time 36 SECONDS (22-32) H Coagulation Comments Advance Care Planning Advanced Care plannin - 30 Minutes Problem\Assessment\Plan Problems/Diagnosis: (1) ANCA (acute kidney injury) Assessment & Plan: CPK is normal. he has gone into ATN from michael sepsis. He is now in icu with lactic acidosis. He needs surgical consult. He needs CVVH. Though we start it, if he goes to the OR, we need to stop and restart. (2) Anemia Assessment & Plan: severe iron deficiency. even if iron deficient, i would hesitate to give any iron right now, in michael setting of cellulitis and sepsis. xfuse prn will give epogen. rule out any paraproteins. (3) Septic shock Assessment & Plan: critically ill , now in icu. cvvh is getting started soon. CADENCE COTO MD Oct 31, 2024 11:26
[2024-10-31] MEDS: NORepinephrine 8mg/ 250ml NS 250 ML IV SCH (11:32)
[2024-10-31 11:39] LABS: RED CELL DISTRIBUTION WIDTH 18.7 % (11.5-14.5)
[2024-10-31 11:41] LABS: MEAN PLATELET VOLUME 9.4 FL (7.4-10.4)
--- NOTE | 2024-10-31 11:41 | ELECTROCARDIOGRAPH REPORT ---
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 ROSA M Rivera Measurements Intervals [place]ine Rate: 117 P: 0 VT: 0 QRS: 41 QRSD: 126 T: 55 QT: 380 QTc: 531 Interpretive Statements Atrial fibrillation Ventricular premature complex Right bundle branch block Baseline wander in lead(s) V3 Electronically Signed On 10-31-2024 18:40:[address] ROSA M Rivera Please click the below link to view image of tracing.
[2024-10-31 12:06] LABS: CREATININE 4.71 MG/DL (0.60-1.10); eCRCL 14 ML/MIN; eGFR 12 ML/MIN
[2024-10-31 12:16] LABS: TOTAL CARBON DIOXIDE 11.5 MMOL/L (24-32)
[2024-10-31 12:18] LABS: BANDS% (MANUAL) 28.0 % (0-10); EOSINOPHILS % (MANUAL) 1.0 % (0-6); LYMPHOCYTES % (MANUAL) 13.0 % (21-51); METAMYLEOCYTES% (MANUAL) 4.0 % (0-0); MONOCYTES % (MANUAL) 3.0 % (2-12); NEUTROPHILS % (MANUAL) 51.0 % (42-75); NUCLEATED RED BLOOD CELLS 4 /100WBC (0-0); PLATELET ESTIMATE DECREASED
[2024-10-31 12:19] LABS: ELLIPTOCYTES FEW
[2024-10-31] MEDS ORDERED: dextrose 50%-water 50ml dispensing syringe IV PRN (12:20)
[2024-10-31] MEDS: dextrose 50%-water 50ml dispensing syringe IV ONE ×2 (12:30→22:45)
[2024-10-31] MEDS: ringers solution, lacted 1,000 ML IV ONE ×2 (12:48→12:49)
[2024-10-31] MEDS: ringers solution, lacted 1,000 ML IV SCH (12:49)
[2024-10-31] MEDS: NORepinephrine 32mg/250mL bag 250 ML IV SCH (12:59)
--- NOTE | 2024-10-31 13:11 | RADIOLOGY REPORT ---
EXAM: DI CHEST,SINGLE VIEW TECHNIQUE: Single frontal chest radiograph CLINICAL HISTORY: post line placement COMPARISON: DI CHEST,SINGLE VIEW on DOS: 10/31/24, DI CHEST,SINGLE VIEW on DOS: 10/31/24, DI CHEST,SING LE VIEW on DOS: 10/30/24 Findings/Impression: Frontal chest radiograph demonstrates no acute osseous or superficial soft tissue abnormalities. The endotracheal tube terminates 5.5 cm from the luz. Bilateral IJ catheters terminate near the hough perior cavoatrial junction. The trachea is midline. The cardiac silhouette and mediastinum are within normal limits. Bilateral lower lung field atelectasis. No pneumothorax, pleural effusions, or consolidations.
[2024-10-31] MEDS: bicarb dialysis sol 2K+/3 Ca2+ 5,000 ML HE SCH (13:16)
[2024-10-31] MEDS ORDERED: dextrose 50%-water 250 ML IV SCH (14:00)
[2024-10-31] MEDS: dextrose 50%-water 50ml dispensing syringe IV PRN (14:02)
[2024-10-31] MEDS: VASOPRESSIN 20 UNITS/NS 100mL 100 ML IV PRN (14:51)
[2024-10-31] MEDS: DOPamine 400mg/D5W 250ml 250 ML IV SCH (15:50)
[2024-10-31] MEDS: DEXTROSE 50% IV SCH (15:51)
[2024-10-31] MEDS: DOPamine 400mg/D5W 250ml 250 ML IV ONE (15:53)
[2024-10-31] MEDS: heparin, porcine 5000 units/ml vial SQ SCH (16:00)
[2024-10-31 16:14] LABS: ABG BASE EXCESS -26.5 mmol/L (-2.0-3.0); ABG HCO3 7.4 mmol/L (21.0-28.0); ABG OXYGEN SATURATION 84.6 % (94.0-98.0); ABG PCO2 (T) 46.1 mmHg (35.0-48.0); ABG PH (T) 6.791 (7.350-7.450); ABG PO2 (T) 60.2 mmHg (83.0-108.0); FCOHb 0.8 % (0.5-1.5); FHHb 15.3 % (0.0-5.0); FIO2 100.0 mmHg/%; FMetHb 0.1 % (0.0-1.5); FO2Hb 83.8 % (94.0-98.0); MODE VENT - AC; PATIENT TEMPERATURE 33.4; PEEP 5 cm H2O; RESPIRATORY RATE 18 b/min; TIDAL VOLUME 500 mL; TOTAL HEMOGLOBIN 8.1 G/dl (13.5-17.5)
[2024-10-31 16:59] LABS: MEAN PLATELET VOLUME 8.1 FL (7.4-10.4); RED CELL DISTRIBUTION WIDTH 18.5 % (11.5-14.5)
[2024-10-31 17:04] LABS: CALCIUM CVVH 6.9 MG/DL (8.5-10.1); CREATININE 3.93 MG/DL (0.60-1.10); PHOSPHORUS 8.4 MG/DL (2.3-4.5); eGFR 15 ML/MIN
[2024-10-31 17:09] LABS: TOTAL CARBON DIOXIDE 9.4 MMOL/L (24-32)
[2024-10-31] MEDS: COMMUNICATION ORDER 1 EA MISC MC ONE ×2 (17:10→17:15)
[2024-10-31 17:29] LABS: MEAN PLATELET VOLUME 8.2 FL (7.4-10.4); RED CELL DISTRIBUTION WIDTH 18.6 % (11.5-14.5)
[2024-10-31 17:39] LABS: BANDS% (MANUAL) 42.0 % (0-10); EOSINOPHILS % (MANUAL) 1.0 % (0-6); LYMPHOCYTES % (MANUAL) 11.0 % (21-51); METAMYLEOCYTES% (MANUAL) 5.0 % (0-0); MONOCYTES % (MANUAL) 5.0 % (2-12); NEUTROPHILS % (MANUAL) 36.0 % (42-75); NUCLEATED RED BLOOD CELLS 12 /100WBC (0-0); PLATELET ESTIMATE DECREASED
[2024-10-31 17:40] LABS: ELLIPTOCYTES FEW
--- NOTE | 2024-10-31 18:33 | Physician Documentation ---
History of Present Illness ~ General Chief Complaint: Wound Re-Check Stated Complaint: WOUND CARE Primary Medical Doctor: Spencer Eagle MD History of Present Illness Initial Comments I was called to the floor for a code blue. On arrival the patient had CPR in progress. He reportedly had renal failure, and so with concern for hyperkalemia, he was given bicarb and calcium. He was emergently intubated for airway control. We then obtained ROSC. He will be admitted to the ICU. Medication Reconciliation Allergies: Coded Allergies: No Known Allergies (Unverified , 10/21/24) Scheduled Amlodipine Besylate (Amlodipine Besylate), 1 TAB PO HS, (Reported) Atorvastatin Calcium (Atorvastatin Calcium), 1 TAB PO DAILY, (Reported) Cholecalciferol (Vitamin D3) (Vitamin D3), 2 TAB PO DAILY, (Reported) Hydrochlorothiazide (Hydrochlorothiazide), 1 TAB PO QAM, (Reported) Pantoprazole Sodium (PROTONIX tablet), 40 MG PO DAILY, (Reported) Potassium Bicarbonate/Cit AC (Effer-K 20 Meq Tablet Eff), 1.5 TAB PO DAILY, (Reported) Discontinued Medications Unable to Obtain Medications (Unable to Obtain Medications), (Reported) Discontinued Reason: Other Past Medical History Patient History: FH: diabetes mellitus (brother have type 2 diabetes) Smoking Status: Former smoker Physical Exam Physical Exam Vital Signs: Temperature: 93.0, Source: Bladder, Heart Rate: 49, Respiratory Rate: 19, BP: 117/42, Pulse Oximetry: 85, Weight: 80.910 Oxygen Flow Rate: 8.0 Procedures Intubation Time of Intubation: 0800 Intubation Method: orotracheal Endotracheal Tube Size: 7.5 Medications: none ETT Confirmation: Ascultation, CO2 Detector Breath Sounds After Intubation: equal Intubation Complications: no complications Procedure Note The patient was emergently intubated during CPR. Unremarkable airway and easy i ntubation, ET tube placed at 24 at the teeth. Chest x-ray shows the tube is about 5 cm from the luz. It was advanced 1 cm and a repeat chest x-ray was obtained. No complications. Progress Results/Orders Results/Orders Orders - UBALDO MARTINEZ MD Urinalysis, Cult If Indicated (10/29/24 11:13) Culture Blood (10/29/24 11:44) Monitor (10/29/24 11:44) Saline Lock (10/29/24 11:44) Completed Orders - UBALDO MARTINEZ MD Cbc/Diff (10/29/24 11:13) Procalcitonin (10/29/24 11:13) BMP (10/29/24 11:13) Lacticsepsis (10/29/24 11:44) Man Diff (10/29/24 11:30) Lactic,2hr (10/29/24 13:45) Hgb A1c (10/29/24 11:30) Lipid Panel (10/29/24 11:30) TSH (10/29/24 11:30) Hgb A1c (10/29/24 11:30) Vital Signs 10/29/24 10/29/24 10/29/24 11:10 13:02 13:04 Temp 98.4 98.0 Pulse 92 83 Resp 18 14 B/P (MAP) 100/53 119/66 (83) Pulse Ox 97 95 O2 Flow Rate 0 0 Laboratory Tests Test 10/29/24 11:30 10/29/24 12:10 10/29/24 13:51 White Blood Count 17.8 H Red Blood Count 3.58 L Hemoglobin 9.5 L Hematocrit 29.5 L Mean Corpuscular Volume 82.3 Mean Corpuscular Hemoglobin 26.6 L Mean Corpuscular Hemoglobin Concent 32.4 L Red Cell Distribution Width 16.8 H Platelet Count 154 Mean Platelet Volume 8.9 Neutrophils (%) (Auto) 93.0 H Lymphocytes (%) (Auto) 1.3 L Monocytes (%) (Auto) 4.9 Eosinophils (%) (Auto) 0.7 Basophils (%) (Auto) 0.1 Neutrophils # (Auto) 16.5 H Lymphocytes # (Auto) 0.2 L Monocytes # (Auto) 0.9 Eosinophils # (Auto) 0.1 Basophils # (Auto) 0.0 CBC Comment Differential Total Cells Counted 100 Neutrophils % (Manual) 75.0 Band Neutrophils % 14.0 H Lymphocytes % (Manual) 1.0 L Monocytes % (Manual) 7.0 Metamyelocytes % 3.0 H Platelet Estimate Normal Red Blood Cell Morphology Perf Polychromasia 1+ Basophilic Stippling Anisocytosis 1+ [place] Cells 1+ Acanthocytes 1+ Schistocytes Few Sodium Level 140 Potassium Level 4.3 Chloride Level 102 Carbon Dioxide Level 22.7 L Anion Gap 15 Blood Urea Nitrogen 48 H Creatinine 3.48 H Estimated GFR/1.73 m2 17 BUN/Creatinine Ratio 13.8 Glucose Level 105 H Hemoglobin A1c 6.0 Calcium Level 8.8 Albumin 2.7 L Triglycerides Level 97 Cholesterol Level 57 LDL Cholesterol 16 L HDL Cholesterol 18 L Cholesterol/HDL Ratio 3.2 Procalcitonin 16.64 H Thyroid Stimulating Hormone (TSH) 4.34 Chemistry Comments Lactic Acid Level 3.5 H 3.8 H Microbiology Date/Time Source Procedure Growth Status 10/29/24 12:10 Blood Arm Left Blood Culture - Preliminary NO GROWTH AFTER 2 DAYS Resulted Departure Disposition: ADMITTED INPATIENT Admitted to Inpatient Unit: to hospitalist Impression: Primary Impression: Cellulitis Additional Impression: Wound Condition: Stable Additional Instructions: Patient did have anemia on CBC hemoglobin around 9.5 along with elevated white count. Hospitalist was consulted and patient will be admitted for IV antibiotics and further eval and treatment and possible surgical consult. Referrals: NO PRIMARY CARE PROVIDER (PCP) Signature Scribe Signature: na Attestation: UBALDO Nickerson MD Oct 31, 2024 18:33
[2024-10-31] MEDS ORDERED: epiNEPHrine inj 5 MG in normal saline 250ml IV soln 245 ML IV PRN (19:00)
[2024-10-31] MEDS: NORepinephrine 32 MG in normal saline 250ml IV soln 218 ML IV SCH (21:33)
[2024-10-31] MEDS ORDERED: epiNEPHrine 10 MG in NS 250ml IV SOLUTION IV SCH ×2 (21:45→21:55)
[2024-10-31 22:20] LABS: MEAN PLATELET VOLUME 8.5 FL (7.4-10.4); RED CELL DISTRIBUTION WIDTH 18.7 % (11.5-14.5)
--- NOTE | 2024-10-31 22:30 | CONSULTATION REPORT - RESIDENT ---
Consult Providers to CC Resident Creating Document: NADEEM CUEVAS CC: ALEX MENDENHALL MD History of Present Illness Reason for Admit\Complaint: wounds History of Present Illness This is a 79 year-old male with PMH of HTN and HLD who had been admitted to PCU due to sepsis secondary to infected hand/leg wounds which he experienced after a mechanical fall, as well as ANCA and lactic acidosis. Today, patient experienced a cardiac arrest where ROSC was achived and patient was then transferred to CICU. Allergies: Coded Allergies: No Known Allergies (Unverified , 10/21/24) Home Medications Home Medications Active Reported Effer-K 20 Meq Tablet Eff (Potassium Bicarbonate/Cit AC) 20 Meq Tablet.eff 1.5 Tab PO DAILY 30 Days PROTONIX tablet (Pantoprazole Sodium) 40 Mg Tablet.dr 40 Mg PO DAILY Hydrochlorothiazide 12.5 Mg Tablet 1 Tab PO QAM 30 Days Vitamin D3 (Cholecalciferol (Vitamin D3)) 50 Mcg (2000 Unit) Tablet 2 Tab PO DAILY 30 Days Atorvastatin Calcium 10 Mg Tablet 1 Tab PO DAILY 30 Days Amlodipine Besylate 10 Mg Tablet 1 Tab PO HS 30 Days Past Medical History Past Medical History HTN HLD Past Surgical History Surgical History Comment Left Inguinal hernia repair Family History Family History: FH: diabetes mellitus (brother have type 2 diabetes) Past Social History Social History Comment Former smoker, quit smoking 20 years ago-smoked one pack of cigarettes for 40 years He quit alcohol 40 years ago prior to that, consume drink 6 beers Denies any other illicit drug use history. 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 Chest: Normal expansion. Cardiovascular: tachycardic, regular rhythm, normal S1 and S2 without murmur, rub or gallop Abdomen: Soft and non tender in epigastrium, no organomegaly, no guarding and rigidity, bowel sounds present Neuro: Pupils are sluggish Upper Extremities: No cyanosis,clubbing or edema,multiple lacerations,abrasions and wounds, erythema and edema noted in right hand. Wounds on dorsum of left hand noticed as well Lower Extremities: Left lower extremity edema 2+. multiple lacerations in both knees noted. LLeft knee is significantly swollen Skin: as above Diagnostic Data Last Recorded Lab Results: 10/31/24 1707 10/31/24 1634 Diagnostic Data: Laboratory Tests Test 10/31/24 07:02 Prothrombin Time 13.7 SECONDS (9.0-12.0) H INR International Normalized Ratio 1.4 INR Activated Partial Thromboplast Time 36 SECONDS (22-32) H Coagulation Comments Additional Plan ID/Musculoeskeletal: Septic shock Infected b/l hand wounds with cellulitis Possible left knee septic arthritis Lactic acidosis Lactic acid is significantly elevated Receiving aggressive hydration with LR MRI Upper extremities showed no MR evidence of osteomyelitis. Extensive primarily dorsal subcutaneous adipose tissue edema with possible fluid collection No definitive evidence of significant tenosynovitis. On currently on vancomycin, rocephin and clindamycin ID has been Consulted, awaiting recommendations. CVS/Respiratory: Acute hypoxic respiratory failure S/p cardiac arrest with ROSC Intubated, Sedated and mechanically ventilated On Levophed, Vasopressin and Dopamine Rest as above Acute Kidney Injury likely ATN due to Sepsis Anion gap metabolic acidosis Creatinine trending up Oliguric Started on CRRT with bicarbtoday Neprho following Normocytic anemia Probably dimorphic Pending iron studies HTN Hold home meds Code: DNR Lines: Central line, dialysis catheter, salomon Disposition: Admit to CICU. Poor prognosis. Continue medical management Nadeem Baez Internal Medicine Resident PGY-2 Sepsis Screening Skin Color: Pale Date of Service: Oct 31, 2024 Billing Provider: ALEX MENDENHALL MD, LEONARDO LUIS Oct 31, 2024 22:30
[2024-10-31 22:40] LABS: CALCIUM CVVH 6.9 MG/DL (8.5-10.1); CREATININE 2.97 MG/DL (0.60-1.10); PHOSPHORUS 8.2 MG/DL (2.3-4.5); eGFR 20 ML/MIN
[2024-10-31] MEDS: sodium bicarbonate (8.4%) 1 mEq/ml syringe ONE ×2 (22:40→23:42)
--- NOTE | 2024-10-31 22:42 | PROGRESS NOTE ---
Progress Note Dictate Providers to CC ~acute hypoxic resp failure Central Line/PICC still needed: N\A Montemayor Indications Met/Not Met: F/C Indications Met Antibiotic Ordered?: N/A MRSA Education MRSA Education Provided to pt: N/A Objective Vitals Vital Signs Date Time Temp Pulse Resp B/P (MAP) Pulse Ox O2 Delivery O2 Flow Rate FiO2 10/31/24 22:12 58 21 114/51 (72) Mechanical Ventilator 100 10/31/24 18:00 90.7 10/31/24 17:09 85 10/31/24 07:00 8.0 Lab Results: 10/31/24 2207 10/31/24 1634 Coagulation Studies Laboratory Tests Test 10/31/24 07:02 Prothrombin Time 13.7 SECONDS (9.0-12.0) H INR International Normalized Ratio 1.4 INR Activated Partial Thromboplast Time 36 SECONDS (22-32) H Coagulation Comments Counseling Services Smoking & Tobacco Cessation: N/A Advance Care Planning Advanced Care planning: N/A Problem\Assessment\Plan Additional Plan This is a 79 year-old male with PMH of HTN and HLD who had been admitted to PCU due to sepsis secondary to infected hand/leg wounds which he experienced after a mechanical fall, as well as ANCA and lactic acidosis. Today, patient experienced a cardiac arrest where ROSC was achived and patient was then transferred to CICU. Has been having coarve Vfib rhythms, DNR, giving epi pushes and bicarb pushes and magnesium. Will start bicarb drip and reassess ABG , suspect profound acidosis Having kanwal cardia and V fib coarse rhythms Very poor prognosis CC time 60 mins spent Ruthie Reinoso MD Sepsis Screening Skin Color: Pale RUTHIE REINOSO MD Oct 31, 2024 22:42
[2024-10-31 22:45] LABS: TOTAL CARBON DIOXIDE 5.8 MMOL/L (24-32)
[2024-10-31] MEDS: insulin regular, human 10 units/0.1 ml syringe IV ONE (22:45)
--- NOTE | 2024-10-31 22:53 | PROCEDURE NOTE- Residance ---
Procedure Note Providers to CC CC: ALEX MENDENHALL MD ~ Planned Procedure Central power line lineman Dr Mendenhall / Dr Baez Description A time out was performed. My hands were washed immediately prior to the procedure. I wore a surgical cap, mask with protective eyewear, full gown and sterile gloves throughout the procedure. The patient was placed in Trendelenburg position. RIGHT chest/neck region was prepped using chlorhexidine scrub and draped in sterile fashion using a full drape and sterile probe cover and sterile gel employed. The medial and lateral heads of the sternocleidomastoid muscle were identified as was the carotid pulse. The In ternal Jugular vein was identified using the ultrasound. Anesthesia was achieved over the vein using 1% lidocaine. Using real-time out of plane guidance, the introducer needle was inserted into the Internal Jugular vein under direct ultrasound visualization. Venous blood was withdrawn. The syringe was removed and a guidewire was advanced into the introducer needle. The guidew trish was visualized in the Internal Jugular Vein by ultrasound. A small incision was made at the skin surface with a scalpel and the introducer needle was exchanged for a dilator over the guidewire. After appropriate dilation was obtained, the dilator was exchanged over the wire for a four-lumen central venous catheter. The wire was removed and the catheter was sutured in place. A sterile sorbaview shield was placed over the catheter at the insertion site. The patient tolerated the procedure without any hemodynamic compromise. At time of procedure completion, all ports aspirated and flushed properly. Post- procedure chest x-ray is pending at this time. Estimated blood loss is minimal.. Date of Service: Oct 31, 2024 Billing Provider: ALEX MENDENHALL MDLUIS Oct 31, 2024 22:53
--- NOTE | 2024-10-31 22:55 | PROCEDURE NOTE- Residance ---
Procedure Note Providers to CC CC: ALEX MENDENHALL MD ~ Planned Procedure Winston catherter Description A time out was performed. My hands were washed immediately prior to the procedure. I wore a surgical cap, mask with protective eyewear, full gown and sterile gloves throughout the procedure. The patient was placed in Trendelenburg position. LEFT chest/neck region was prepped using chlorhexidine scrub and draped in sterile fashion using a full drape and sterile probe cover and sterile gel employed. The medial and lateral heads of the sternocleidomastoid muscle were identified as was the carotid pulse. The Internal Jugular vein was identified using the ultrasound. Anesthesia was achieved over the vein using 1% lidocaine. Using real-time out of plane guidance, the introducer needle was inserted into the Internal Jugular vein under direct ultrasound visualization. Venous blood was withdrawn. The syringe was removed and a guidewire was advanced into the introducer needle. The guidewire was visualized in the Internal Jugular Vein by ultrasound. A small incision was made at the skin surface with a scalpel and the introducer needle was exchanged for a dilator over the guidewire. After appropriate dilation was obtained, the dilator was exchanged over the wire for a 20cm Winston Catheter. The wire was removed and the catheter was sutured in place. A sterile sorbaview shield was placed over the catheter at the insertion site. The patient tolerated the procedure without any hemodynamic compromise. At time of procedure completion, all ports aspirated and flushed properly. Post-procedure chest x-ray is pending at this time. Estimated blood loss is minimal.. Date of Service: Oct 31, 2024 Billing Provider: ALEX MENDENHALL MD LUIS BARKSDALE Oct 31, 2024 22:55
[2024-10-31] MEDS: atropine 0.1mg/ml 10ml syringe ONE (23:41)
[2024-10-31] MEDS: calcium chloride 100 MG/1 ML inj IV ONE ×2 (23:42→23:45)
--- NOTE | 2024-10-31 23:44 | CONSULTATION REPORT ---
Consult Consult Consultation Reason for Consult: Sepsis with hand cellulitis Consulting Provider: Dr. Erickson Antibiotic Days: Vanc 2, Clinda 2 S/P Rocephin, Zosyn Lines: PIV (getting central line placed, however) Micro: 10/29 Blood- GAS 10/30 Urine- ngtd HPI: Patient is an 79 year old male who ID is asked to see in consultation for hand cellulitis. Per the H&P, he had injured the hand (and several other places) in a fall on the 20 of October. He sought care but continued to worsen and so was admitted on 10/29 with Vancomycin. ID is asked to consult but, unfortunately, he coded just before my exam. He did obtain ROSC after about 10 minutes but was seen in the ICU intubated and non-responsive. Cultures are now growing GAS. Past Medical/Surgical History: HTN, HLD, L inguinal hernia repair Current Medications Medications (Trade) Dose Ordered Sig/Lexii Route PRN Reason Start Time Stop Time Status Last Admin Dose Admin Sodium Chloride 1,000 ml @ 1,000 mls/hr ONCE STAT IV 10/29/24 13:41 10/29/24 14:40 DC 10/29/24 14:00 1,000 MLS/HR Morphine Sulfate (morphine inj.) 2 mg Q4H PRN IV severe pain (7-10) 10/29/24 14:45 10/30/24 20:26 2 MG Docusate Sodium (Colace capsule) 100 mg BID PO 10/29/24 20:00 10/30/24 20:58 100 MG Sodium Chloride 1,000 ml @ 100 mls/hr Q10H IV 10/29/24 14:45 10/29/24 16:40 DC 10/29/24 15:12 100 MLS/HR Vancomycin HCl 350 ml @ 117 mls/hr ONCE ONCE IV 10/29/24 16:35 10/29/24 19:34 DC 10/29/24 17:34 117 MLS/HR Sodium Chloride 1,000 ml @ 100 mls/hr Q10H IV 10/29/24 16:40 10/30/24 18:13 DC 10/30/24 08:55 150 MLS/HR Nystatin (Nystop powder 15GM BOTTLE) 1 applic TID TP 10/29/24 17:10 10/31/24 16:00 1 APPLIC Ceftriaxone Sodium 50 ml @ 100 mls/hr DAILY IV 10/29/24 19:05 10/30/24 12:33 DC 10/30/24 08:48 100 MLS/HR Sodium Chloride 500 ml @ 500 mls/hr ONCE ONCE IV 10/30/24 10:20 10/30/24 11:19 DC 10/30/24 10:22 500 MLS/HR Sodium Chloride 1,000 ml @ 1,000 mls/hr ONCE ONCE IV 10/30/24 12:20 10/30/24 13:19 DC 10/30/24 12:36 1,000 MLS/HR Sodium Chloride 1,000 ml @ 1,000 mls/hr ONCE ONCE IV 10/30/24 13:20 10/30/24 14:19 DC 10/30/24 13:43 1,000 MLS/HR Lidocaine HCl (GLYDO-Lidocaine 2% Topical Jelly 11mL syringe) 1 applic ONCE ONCE TOP 10/30/24 12:20 10/30/24 12:25 DC 10/30/24 13:45 1 APPLIC Piperacillin/ Tazobactam/ Dextrose 50 ml @ 12.5 mls/hr Q8H IV 10/30/24 12:30 10/30/24 15:05 DC 10/30/24 13:43 12.5 MLS/HR Clindamycin HCl/ Dextrose 50 ml @ 100 mls/hr Q6H IV 10/30/24 12:36 10/31/24 21:46 100 MLS/HR Sodium Bicarbonate 150 ml/Dextrose 1,150 ml @ 100 mls/hr [id number] IV 10/30/24 18:15 10/31/24 11:54 DC 10/31/24 11:31 100 MLS/HR Heparin Sodium (Porcine) (heparin, porcine 5000 unit/ ml 1ml vial) 5,000 unit Q12H SQ 10/30/24 20:45 10/31/24 11:00 DC 10/30/24 20:58 5,000 UNIT Albumin Human 400 ml @ ud STK-MED ONCE IV 10/31/24 08:59 10/31/24 09:18 DC 10/31/24 09:05 1,200 MLS/HR Albumin Human 250 ml @ 75 mls/hr Q3H20M IV 10/31/24 09:00 10/31/24 15:59 75 MLS/HR Sodium Chloride 1,000 ml @ 4,000 mls/hr ONCE ONCE IV 10/31/24 09:00 10/31/24 09:14 DC 10/31/24 09:06 4,000 MLS/HR Lactated Ringer's 1,000 ml @ 1,000 mls/hr ONCE ONCE IV 10/31/24 10:45 10/31/24 11:44 DC 10/31/24 12:48 1,000 MLS/HR Lactated Ringer's 1,000 ml @ 1,000 mls/hr ONCE ONCE IV 10/31/24 10:45 10/31/24 11:44 DC 10/31/24 12:49 1,000 MLS/HR Norepinephrine Bitartrate 250 ml @ 15.171 mls/ hr [id number] IV 10/31/24 11:10 10/31/24 11:40 DC 10/31/24 11:32 136.536 MLS/HR Pantoprazole Sodium (Protonix 40mg IV) 40 mg DAILY IV 10/31/24 11:08 10/31/24 16:00 40 MG CRRT Dialysis Solution 5,000 ml @ 2,427.3 mls/ hr Q2H4M HE 10/31/24 11:20 10/31/24 13:38 2,427.3 MLS/HR Lactated Ringer's 1,000 ml @ 150 mls/hr Q6H40M IV 10/31/24 11:35 10/31/24 12:49 150 MLS/HR Norepinephrine Bitartrate 250 ml @ 34.134 mls/ hr Q7H20M IV 10/31/24 11:40 10/31/24 21:49 DC 10/31/24 12:59 34.134 MLS/HR Dextrose (dextrose 50%-water syringe) 50 ml Q15M PRN IV Severe Hypoglycemia & IVaccess 10/31/24 12:20 10/31/24 14:02 50 ML Dextrose (dextrose 50%-water syringe) 50 ml STK-MED ONCE IV 10/31/24 12:26 10/31/24 12:26 DC 10/31/24 12:30 50 ML Sterile Water 71 ml/Dextrose 250 ml @ 40 mls/hr Q6H15M IV 10/31/24 14:05 10/31/24 15:51 40 MLS/HR Vasopressin/ Sodium Chloride 100 ml @ 3 mls/hr [id number] PRN IV to maintain mean MAP 60 10/31/24 14:40 10/31/24 14:51 3 MLS/HR Dopamine HCl/ Dextrose 250 ml @ 0 mls/hr Q0M IV 10/31/24 15:35 10/31/24 15:50 30.341 MLS/HR Miscellaneous (Communication Order) 1 ea ONCE ONCE MC 10/31/24 17:10 10/31/24 17:15 DC 10/31/24 17:10 1 EA Norepinephrine 32 mg/Sodium Chloride 250 ml @ 3.793 mls/ hr Q48H IV 10/31/24 19:55 10/31/24 21:33 37.889 MLS/HR Social History: goes to the [employer] Family History: Noncontributory ROS: As in HPI, otherwise negative Objective: Vitals: 90.7, 44, 19, 82/33, 100% on 100% FiO2 General: Intubated, NAD but non-responsive HEENT: NC/AT, normal conjunctiva, no oral lesions visualized behind ET tube CV: Regular Resp: Coarse sounds Abd: Soft, nontender, nondistended Ext: R hand edematous and weepy, there are some dark areas that do not slough L hand with abrasions on fingers, R knee abrasion Lines: Occlusively dressed Laboratory Tests 10/31/24 22:07 10/29 MRI 1. No MR evidence of osteomyelitis. 2. Extensive primarily dorsal subcutaneous adipose tissue edema with possible fluid collection (infected versus sterile) in the appropriate clinical setting. 3. No definitive evidence of significant tenosynovitis. Assessment: // GAS septicemia - source is SSTI // R hand cellulitis // Multiple other abrasions without surrounding hallmarks of inflammation // S/P Cardiac arrest with ROSC after 10 minutes // Acute respiratory failure, intubated during code // Shock, currently on multiple pressors // ANCA // Pancytopenia // Antibiotic Allergies: none known // MRSA Screen: negative Plan: - Recommend Rocephin for GAS as beta-lactam therapy would be ideal. Hopefully this can be deescalated with further respiratory improvement to target the bloodstream. DC Vanc - Change Clinda to Zyvox as there is some local resistance here. Follow up sensitivities and amend as appropriate - Anticipate need for 2 weeks of therapy - I did ask nursing to draw lines around his wound but I do not have reason at this time to suspect nec fasc. His labs/LINREC score will now be obscured by the code - Check fibrinogen - Wound care - Monitor WBC count, Cr, LFTs, hand, O2 and pressor requirements - Thank you for the consult, will continue to follow LENORA MIRANDA DO Oct 31, 2024 23:44
[2024-10-31] MEDS: sodium bicarbonate (8.4%) 1 mEq/ml syringe IV ONE (23:45)
[2024-10-31] MEDS ORDERED: CefTRIAXone 2gm/D5W 50ml BAG 50 ML IV STA (23:52)
[2024-11-01 00:27] LABS: BANDS% (MANUAL) 45 % (0-10); EOSINOPHILS % (MANUAL) 1 % (0-6); LYMPHOCYTES % (MANUAL) 23 % (21-51); METAMYLEOCYTES% (MANUAL) 1 % (0-0); NEUTROPHILS % (MANUAL) 30 % (42-75); NUCLEATED RED BLOOD CELLS 10 /100WBC (0-0)
[2024-11-01 00:28] LABS: PLATELET ESTIMATE DECREASED
[2024-11-01 00:35] LABS: HYPOGRANULAR PLATELETS FEW
--- NOTE | 2024-11-01 07:27 | PROGRESS NOTE- Residence ---
Progress Note - Resident Providers to CC Resident Creating Document: SPENCER EAGLE RES Progress Note for 10/31/2024~ Antibiotic Timeout Antibiotic Ordered?: Yes Subjective Progress note for 10/31/24 Patient is seen and examined at bedside. On the morning of 10/31/2024 he was found apneic and not able to breathe, code blue was called he was intubated and sedated and transferred to the ICU. Objective Vital Signs Date Time Temp Pulse Resp B/P (MAP) Pulse Ox O2 Delivery O2 Flow Rate FiO2 10/31/24 22:12 58 21 114/51 (72) Mechanical Ventilator 100 10/31/24 22:00 88.7 10/31/24 17:09 85 10/31/24 07:00 8.0 Result Diagram: 10/31/24220610/31/242206 General: not awake, not alert oriented to place, time, and person HEENT: No pallor present, no icterus Neck: No masses and tenderness Resp: Apneic Cardiovascular: Regular rate and rhythm, normal S1-S2. Abdomen: Could not be assessed, patient unconscious Neuro: Could not be assessed, patient unconscious Extremities: No cyanosis,clubbing or edema Skin: Warm and Dry. Coagulation Studies Laboratory Tests Test 10/31/24 07:02 Prothrombin Time 13.7 SECONDS (9.0-12.0) H INR International Normalized Ratio 1.4 INR Activated Partial Thromboplast Time 36 SECONDS (22-32) H Coagulation Comments Plan Plan Progress note for 10/31/24 This is a 79 year-old male with PMH of HTN and HLD, presents in the ER with complaints of pain and swelling in the right hand, initially the symptoms began after a fall on Monday (10/20/2024) while he was carrying a trash can about 50 lb and sustained multiple abrasions and laceration to both knees and hands. Plan Infected b/l hand wound with dehiscence Severe sepsis, likely secondary to cellulitis of the upper extremity Right hand cellulitis Leukocytosis with left shift Lactic acidosis Wbc count dropped from 17.8 to 8.2, procalcitonin trending upward currently its 26.64. Lactic acid variable trending up and down currently 3.0 Patient recevied 4 L of NS X-rays ruled out fractures Upper Extremity CT upper extremities: 1. Primarily dorsal to dorsal ulnar forearm hand soft tissue swelling without definitive drainable fluid collection based on CT assessment. No CT evidence of necrotizing fasciitis. No soft tissue emphysema. No drainable fluid collection/ abscess. MRI Upper extremities:1. No MR evidence of osteomyelitis. Extensive primarily dorsal subcutaneous adipose tissue edema with possible fluid collection (infected versus sterile) in the appropriate clinical setting. No definitive evidence of significant tenosynovitis. Patient currently on vancomycin and clindamycin ,Dced zoysn as per reccomendation of manager [place]. Patient recevied 4 L of NS. Patient wounds has been dressed ID has been Consulted, awaiting recommendations. Patient lost consciousness and code blue was called for resuscitation, require CPR and intubation ,eventually patient was transfered to ICU. Acute Kidney Injury secondary to ATN Unknown baseline Creatinine trending upward 4.18 Continue to Monitor CMP Urine Na: 22, Urine K 68, Urine Creatinine: 148, Urine Urea: 257 FeNA: 0.4% Decrease urine output since yestraday, placed patient on foleys catheter, only 50 ml noted so far. Maintain Strict I&O chart. [employer]el [employer] Operator consulted, advised CPK in view of rhabdomylsis,advised to repeat CMP,mg,po4 stat. Severe Normocytic anemia Probably dimorphic Hgb:8.1, Hct: 24.5 Severe anemic downtrending hemoglobin, received 2 units of blood transfusion PRBCs History of HTN Currently hypotensive History of HLD Pending med rec Dvt Prophylaxis: Code Status: Code status changed to DNR On the morning of 10/31/2024 he was found apneic and not able to breathe, code blue was called he was intubated and sedated and transferred to the ICU. Critical Care time 30-40 minutes Spencer Eagle PGY1 Resident Addendum: Chart reviewed by me agree with the assessment and plan as above. Patient is a 79-year-old male admitted for sepsis secondary to bilateral upper extremity cellulitis. This morning he coded as he was apneic and having no respiratory rate. Post resuscitation he is intubated sedated and transferred to the ICU. He is in severe septic shock with multiorgan failure. Renal failure requiring CVVH severe anemia requiring blood transfusions. Marcia Hester MD IM resident, PGY 3 Date of Service: Nov 01, 2024 Billing Provider: LATOYA KEATING MD, SANJAY, RES Nov 01, 2024 07:27 MARCIA HESTER, RES Nov 01, 2024 13:02
[2024-11-01] MEDS ORDERED: vancomycin/NS 1 GM ADD-VANTAGE 250 ML IV SCH (08:00)
[2024-11-01] MEDS ORDERED: linezolid 600mg/300ml PREMIX 300 ML IV SCH (08:00)
[2024-11-02 05:13] LABS: HBSAG SCREEN Negative (Negative)
[2024-11-02 06:48] LABS: HEPATITIS C VIRUS ANTIBODY Non Reactive (Non Reactive)
[2024-11-02 06:48] LABS: ANTISTREPTOLYSIN O AB <20.0 IU/mL (0.0-200.0); COMPLEMENT C3, SERUM 88 mg/dL (82-167); COMPLEMENT C4, SERUM 34 mg/dL (12-38)
[2024-11-04] MEDS ORDERED: VANCOMYCIN LEVEL IV ONE (07:30)
== END 2024-11-01 03:24 | DRG 919 ==
LOC: ER 11:04 → ED HOLD 14:01 → PCU 3S 16:05 → CICU 2S 10-31 08:41
PROVIDERS: ADMIT Family Medicine; ATTEND Family Medicine
PROC: 0BH17EZ Insertion of Endotracheal Airway into Trachea, Via Natural or Artificial Opening (ICD-10-PCS; principal; 2024-10-31)
PROC: 5A1935Z Respiratory Ventilation, Less than 24 Consecutive Hours (ICD-10-PCS; 2024-10-31)
PROC: 02HV33Z Insertion of Infusion Device into Superior Vena Cava, Percutaneous Approach (ICD-10-PCS; 2024-10-31)
PROC: 02HV33Z Insertion of Infusion Device into Superior Vena Cava, Percutaneous Approach (ICD-10-PCS; 2024-10-31)
PROC: B548ZZA Ultrasonography of Superior Vena Cava, Guidance (ICD-10-PCS; 2024-10-31)
PROC: B548ZZA Ultrasonography of Superior Vena Cava, Guidance (ICD-10-PCS; 2024-10-31)
PROC: 5A0935A Assistance with Respiratory Ventilation, Less than 24 Consecutive Hours, High Flow/Velocity Cannula (ICD-10-PCS; 2024-10-31)
PROC: 5A12012 Performance of Cardiac Output, Single, Manual (ICD-10-PCS; 2024-10-31)
PROC: 30233N1 Transfusion of Nonautologous Red Blood Cells into Peripheral Vein, Percutaneous Approach (ICD-10-PCS; 2024-10-31)
PROC: 5A1D90Z Performance of Urinary Filtration, Continuous, Greater than 18 hours Per Day (ICD-10-PCS; 2024-10-31)
PROC: 6A550Z3 Pheresis of Plasma, Single (ICD-10-PCS; 2024-10-31)
DX: T81.30XA Disruption of wound, unspecified, initial encounter (principal); A41.9 Sepsis, unspecified organism; N17.0 Acute kidney failure with tubular necrosis; J96.01 Acute respiratory failure with hypoxia; R65.21 Severe sepsis with septic shock; L03.113 Cellulitis of right upper limb; D61.818 Other pancytopenia; E87.20 Acidosis, unspecified; E78.5 Hyperlipidemia, unspecified; I46.9 Cardiac arrest, cause unspecified; I10 Essential (primary) hypertension; Y83.8 Other surgical procedures as the cause of abnormal reaction of the patient, or of later complication, without mention of misadventure at the time of the procedure; Z87.891 Personal history of nicotine dependence; Y92.89 Other specified places as the place of occurrence of the external cause
CPT/HCPCS: 36415; 36430; 36600; 70450; 71045; 73120; 73200; 73218; 76770; 80048; 80053; 80061; 80069; 80202; 80305; 81001; 82330; 82550; 82570; 82595; 82607; 82803; 82945; 82948; 83036; 83540; 83550; 83605; 83615; 83735; 84100; 84133; 84145; 84155; 84156; 84165; 84300; 84439; 84443; 84466; 84540; 85007; 85018; 85025; 85027; 85610; 85651; 85730; 86038; 86060; 86160; 86256; 86592; 86803; 86885; 86900; 86901; 86920; 87040; 87077; 87081; 87088; 87186; 87340; 87522; 93005; 93306; 93931; 93971; 94002; 99285; A4314; A4338; A4615; A6213; A6222; A6223; A6449; A6590; C1751; C1752; C1758; E1594; G0378; J0169; J0461; J0696; J1265; J1644; J2270; J2470; J2543; J3375; J3490; J7030; J7040; J7050; J7070; J7120; P9016; P9045; P9047